=== PATIENT | female | born 1980 | race Caucasian/White ===

== ENCOUNTER 2016-11-04 19:33 | Emergency (ER) | payer OTHER, BC ==
--- NOTE | 2016-11-04 22:26 | ED NURSING NOTES ---
Clinical Report - Nurses [facility] [address] [place] [address] 11/04/2016 19:36 Patient: LA NENA KING TRIAGE Triage time 2008 PM. Acuity: LEVEL 3. Chief Complaint: ABDOMINAL PAIN and NAUSEA. Alert. No acute distress. --20:14 Cynthia Lemos R.N. 20:07 11/04/16. BP: 166/59. HR: 94. RR: 16. O2 saturation: 100%. Temp: 98.5 F. Pain level now: 09/30. --20:14 Cynthia Lemos R.N. Weight: 89.8 kg measured. Height/Length: 63 inches Per Patient. BMI: 35.1. --20:08 Cynthia Lemos R.N. Medications AzaTHIOprine Oral. --20:08 Cynthia Lemos R.N. Medication/allergy information source: the patient. --20:14 Cynthia Lemos R.N. Allergies No Known Drug Allergy. --20:08 Cynthia Lemos R.N. History Arrived by private vehicle. Historian: patient and family. Accompanied by family. Primary physician ([facility] [place] [facility] [place]. Nilesh Knapp). ( PT states that has been feeling abdominal pain for about 4-5 days on right mid section and radiates to the right flank area. Denies any burning sensation upon urination, denies diarrhea, vomiting, fever or chills. Went to [facility] and was sent over for further evaluation). Onset. (4 days). She has had nausea and abdominal pain. No diarrhea or constipation. Last oral intake by patient was lunch today. Treatment MARKETING CONTENT SPECIALIST: None. PAST MEDICAL HX: Immunizations: up-to-date. The patient has had a hysterectomy. 5. Para 3. Sexual history - sexually active. No contraception. SOCIAL HX: Never smoker. No alcohol use or drug use. No recent travel. No infectious disease exposure. No known contact with a sick individual. ABUSE ASSESSMENT: No report of abuse. SELF HARM ASSESSMENT: A self harm assessment was performed. The patient answered "no" to the question "Do you have thoughts of harming or killing yourself?" and "Have you recently had thoughts about harming or killing others?". FALL RISK ASSESSMENT: Fall risk assessment completed. No fall risk identified. NUTRITIONAL RISK ASSESSMENT: The nutritional risk assessment revealed no deficiencies. FUNCTIONAL ASSESSMENT: Functional assessment: no impairments noted. LEARNING NEEDS ASSESSMENT: The learning needs assessment revealed no barriers. SKIN INTEGRITY ASSESSMENT: Skin integrity risk assessment completed. No skin integrity risk identified. --20:14 Cynthia Lemos R.N. PROBLEMS: Anxiety Reaction. Chest Pain of GI Origin. Immunizations. Autoimmune disease. --20:09 Cynthia Lemos R.N. ADDITIONAL SURGERIES: . Hysterectomy. --20:09 Cynthia Lemos R.N. Interventions ID band on patient. --20:14 Cynthia Lemos R.N. PHYSICAL ASSESSMENT Ambulatory to room. GENERAL / NEURO / PSYCH: Alert. Oriented X 4. Appears in pain. HEENT: Mucous membranes are pink. RESPIRATORY: Respirations not labored. Breath sounds within normal limits. CVS: Capillary refill less than 2 seconds. GI / : Abdomen soft and nontender. Bowel sounds within normal limits. SKIN: Skin is warm and dry. --20:14 Cynthia Lemos R.N. NURSING PROGRESS NOTES The initial plan of care for this patient has been created This plan of care was discussed with the patient. Patient gowned. Reassurance given. Two patient identifiers checked. Call light placed in reach. Side rails up. Bed placed in lowest position. Brakes of bed on. --20:17 Cynthia Lemos R.N. 20:25 11/04/2016 Site #1 started via IV in the left antecubital space with an 20g angiocath; one attempt. Blood drawn: rainbow set. Labeled in the presence of the patient and sent to the lab. --20:25 Cynthia Lemos R.N. 22:03 11/04/2016 Started bag #1 1000 mL IV Fluids IV NS (Saline); bolus of 1000 mL over 1 hour(s) then at 1000 mL/hr over 1 hour(s) via site #1 via IV pump. Allergies verified and confirmed 5 rights. IV patency established. IV site checked: no pain, redness, or swelling. IV flushed thoroughly pre- and post-medication administration. --22:03 Lary Carreon R.N. 22:04 11/04/16. ( Warm blanket given to patient). --22:04 Lary Carreon R.N. 22:03 11/04/16. BP: 166/100 (regular adult cuff) taken on the right arm, while sitting. HR: 96. RR: 16. O2 saturation: 100% on room air. Pain level now: 09/30. --22:04 Lary Carreon R.N. 22:18 11/04/2016 Hydrocodone-APAP (Hydrocodone-Acetaminophen) PO 5/325 mg Tablets 2 tab given. Allergies verified, confirmed 5 rights and sedative warning given to the patient. --22:18 Lary Carreon R.N. 22:19 11/04/2016 Ciprofloxacin (Ciprofloxacin) PO Tablets 500 mg given. Allergies verified and confirmed 5 rights. --22:19 Lary Carreon R.N. Care transferred and report received (JOSE M Marie). --22:21 Lary Carreon R.N. DISPOSITION / DISCHARGE 22:39 11/04/2016 IV Fluids IV NS Discontinued: bag #1 upon discharge. Total amount infused: 586 mL. IV patency established. IV site checked: no pain, redness, or swelling. IV flushed thoroughly. --22:39 Lary Carreon R.N. 22:41 11/04/2016 Site #1 removed upon discharge. Bandaid applied. --22:41 Lary Carreon R.N. 22:41 11/04/16. Condition at departure: improved. No learning barriers present. Discharge instructions provided and reviewed with the patient. Reviewed medication(s) side effects, precautions, dosing and course information. Prescription(s) given to the patient. Activity restrictions (rest) reviewed. Patient and spouse verbalized understanding. Written instructions provided in [place]. 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 She was discharged home and accompanied by spouse. She left the Emergency Department ambulatory and via private vehicle. Spouse driving. --22:41 Lary Carreon R.N. 22:37 11/04/16. BP: 163/94 (regular adult cuff) taken on the right arm, while sitting. HR: 92. RR: 18. O2 saturation: 99% on room air. Temp: 99.2 F (oral). Pain level now: 09/30. --22:41 Lary Carreon R.N. Locked/Released at 11/04/2016 22:44 by Lary Carreon R.N.
--- NOTE | 2016-11-04 22:26 | ED ORDER SUMMARY ---
..... Patient: LA NENA KING OrderSheet [facility] VisitID: [id number] [place] [address] 35y, F Registration Date/Time: 11/04/2016 ORDER SHEET Weight: 89.8 kg (measured) Allergies: No Known Drug Allergy GENERAL ORDERS: CBC w Diff Urgent (21:01 11/04/2016 EKoroleva P.A.-C) (Ack 21:04 CHagerty ER Decal Cutter) (21:53 JSanders R.N.) BMP Urgent (21:01 11/04/2016 EKoroleva P.A.-C) (Ack 21:04 CHagerty ER Decal Cutter) (Cancelled: Other21:16 EKoroleva P.A.-C) PT with INR Urgent (21:01 11/04/2016 EKoroleva P.A.-C) (Ack 21:04 CHagerty ER Decal Cutter) (21:53 JSanders R.N.) Lipase Urgent (21:01 11/04/2016 EKoroleva P.A.-C) (Ack 21:04 CHagerty ER Decal Cutter) (21:53 JSanders R.N.) CMP Urgent (21:17 11/04/2016 EKoroleva P.A.-C) (Ack 21:19 CHagerty ER Decal Cutter) (21:53 JSanders R.N.) UA-Culture if indicated Urgent (21:36 11/04/2016 EKoroleva P.A.-C) (Ack 21:45 CHagerty ER Decal Cutter) (21:53 JSanders R.N.) MEDICATION ORDERS: Hydrocodone-APAP PO 10/650 mg (NOW, HIGH ALERT MEDICATION) (22:02 11/04/2016 EKoroleva P.A.-C) (Ack 22:05 JSanders R.N.) (22:18 JSanders R.N.) Ciprofloxacin PO 500 mg (NOW) (22:02 11/04/2016 EKoroleva P.A.-C) (Ack 22:05 JSanders R.N.) (22:19 JSanders R.N.) IV FLUIDS: IV NS : initial bolus 1000 mL (1000 mL/hr), then 1000 mL/hr for X1 (NOW); Joey (21:09 11/04/2016 China Guerrero) (22:03 Selam Zayas) ORDER SHEET NOTES: [Electronically signed by Lary Carreon R.N. (22:44 11/04/2016)] [Electronically signed by Divine Bravo P.A.-C (22:53 11/04/2016)] [Electronically locked/signed by Lary Carreon R.N. (22:44 11/04/2016)]
--- NOTE | 2016-11-04 22:26 | ED ORDER SUMMARY ---
..... Patient: LA NENA KING OrderSheet [facility] VisitID: [id number] [place] [address] 35y, F Registration Date/Time: 11/04/2016 ORDER SHEET Weight: 89.8 kg (measured) Allergies: No Known Drug Allergy GENERAL ORDERS: CBC w Diff Urgent (21:01 11/04/2016 EKoroleva P.A.-C) (Ack 21:04 CHagerty ER Plant Technical Specialist) (21:53 JSanders R.N.) BMP Urgent (21:01 11/04/2016 EKoroleva P.A.-C) (Ack 21:04 CHagerty ER Plant Technical Specialist) (Cancelled: Other21:16 EKoroleva P.A.-C) PT with INR Urgent (21:01 11/04/2016 EKoroleva P.A.-C) (Ack 21:04 CHagerty ER Plant Technical Specialist) (21:53 JSanders R.N.) Lipase Urgent (21:01 11/04/2016 EKoroleva P.A.-C) (Ack 21:04 CHagerty ER Plant Technical Specialist) (21:53 JSanders R.N.) CMP Urgent (21:17 11/04/2016 EKoroleva P.A.-C) (Ack 21:19 CHagerty ER Plant Technical Specialist) (21:53 JSanders R.N.) UA-Culture if indicated Urgent (21:36 11/04/2016 EKoroleva P.A.-C) (Ack 21:45 CHagerty ER Plant Technical Specialist) (21:53 JSanders R.N.) MEDICATION ORDERS: Hydrocodone-APAP PO 10/650 mg (NOW, HIGH ALERT MEDICATION) (22:02 11/04/2016 EKoroleva P.A.-C) (Ack 22:05 JSanders R.N.) (22:18 JSanders R.N.) Ciprofloxacin PO 500 mg (NOW) (22:02 11/04/2016 EKoroleva P.A.-C) (Ack 22:05 JSanders R.N.) (22:19 JSanders R.N.) IV FLUIDS: IV NS : initial bolus 1000 mL (1000 mL/hr), then 1000 mL/hr for X1 (NOW); Joey (21:09 11/04/2016 China Guerrero) (22:03 Selam Zayas) ORDER SHEET NOTES: [Electronically signed by Lary Carreon R.N. (22:44 11/04/2016)] [Electronically signed by Divine Bravo P.A.-C (22:53 11/04/2016)] [Electronically locked/signed by Lary Carreon R.N. (22:44 11/04/2016)]
--- NOTE | 2016-11-04 22:26 | ED CLINICAL REPORT ---
Clinical Report - Physicians/Mid Levels [facility] [address] [place] [address] 11/04/2016 19:36 Patient: LA NENA KING Time Seen: 22:39 Jere 14 2016. Arrived- By private vehicle. Historian- patient. HISTORY OF PRESENT ILLNESS Chief Complaint: ABDOMINAL PAIN. 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 It is described as located in the right flank. The patient has had nausea. No diarrhea. (Patient in the emergency department with abdominal pain, radiating to the right flank. Denies any urgency or frequency. Patient denies any diarrhea. Denies any sick contacts. Denies history of similar pain. Denies melena.). REVIEW OF SYSTEMS No constipation, black stools, difficulty with urination, pain with urination or urinary frequency. No fever, headache, cough or chills. All systems otherwise negative, except as recorded above. PAST HISTORY Problems: Anxiety Reaction. Chest Pain of GI Origin. Immunizations. LNMP - Last Normal Menstrual Period. Autoimmune disease. Additional Surgeries: . Hysterectomy. Medications: AzaTHIOprine Oral. Allergies: No Known Drug Allergy. SOCIAL HISTORY Never smoker. No alcohol use. ADDITIONAL NOTES The nursing notes have been reviewed. PHYSICAL EXAM Vital Signs: 11/04/2016 20:07 BP: 166/59. HR: 94. RR: 16. O2 saturation: 100%. Temp: 98.5 F. Pain level now: 5/10. Appearance: Alert. Eyes: Eyes normal inspection. ENT: Ears normal. Nose normal. Neck: Normal inspection. Neck supple. No lymphadenopathy. CVS: Normal heart rate and rhythm. Heart sounds normal. Respiratory: No respiratory distress. Breath sounds normal. Chest nontender. No rales or rhonchi. Abdomen: Mild tenderness in the periumbilical area. No guarding. Back: Normal inspection. No CVA tenderness. Skin: Skin warm. Neuro: Oriented X 3. No motor deficit. LABS, X-RAYS, AND EKG Laboratory Tests: UA-Culture if indicated: (KATIE: 11/04/2016 20:20) ( MsgRcvd 11/04/2016 22:12) Final results Test Result Flag Units (Reference) URINE COLOR YELLOW URINE APPEARANCE SL CLOUDY URINE GLUCOSE NEGATIVE (NEGATIVE) URINE BILIRUBIN NEGATIVE (NEGATIVE) URINE KETONE TRACE (NEGATIVE) URINE SPECIFIC GRAVITY 1.020 (1.010-1.030) URINE PH 6.5 (5.0-8.0) URINE PROTEIN TRACE (NEGATIVE) URINE UROBILINOGEN 0.2 EU/dL (0.2-1.0) URINE NITRITE POSITIVE (NEGATIVE) URINE BLOOD 2+ (NEGATIVE) URINE LEUK ESTERASE POSITIVE (NEGATIVE) URINE RBC 1-3 rbc/hpf (0-1) URINE WBC 5-10 wbc/hpf (0-1) URINE EPITHELIAL CELLS 1-3 EPI/hpf (0-5) URINE BACTERIA MANY (4+) (NONE SEEN) URINE COMMENT CULTURE INDICATED URINE CULTURES ARE SET-UP BASED ON THE FOLLOWING CRITERIA:POSITIVE NITRITEPOSITIVE LEUKOCYTE ESTERASEGREATER THAN 10 WHITE BLOOD CELLSMODERATE (2+) OR GREATER BACTERIA CBC w Diff: (KATIE: 11/04/2016 20:20) ( [facility] [place] 11/04/2016 21:16) Final results Test Result Flag Units (Reference) WHITE BLOOD COUNT 10.4 K/uL (4.5-11.5) RED BLOOD COUNT 4.48 M/uL (4.00-5.20) HEMOGLOBIN 12.2 gm/dL (12.0-16.0) HEMATOCRIT 37.1 % (36.0-46.0) MEAN CELL VOLUME 83 fL (80-100) MEAN CORPUSCULAR HGB 27 pg (26-34) MEAN CORPUSCULAR HGB CONC 33 g/dL (31-37) RED CELL DISTRIBUTION WIDTH 17.0 H % (11.6-14.8) PLATELET COUNT 288 K/uL (150-400) NEUTROPHIL % 85.7 H % (50-75) LYMPH % 11.2 L % (25-40) MONO % 2.9 L % (3-14) EOSINOPHIL % 0 % (0-4) BASOPHIL % 0.2 % (0-2) PT with INR: (KATIE: 11/04/2016 20:20) ( [facility] [place] 11/04/2016 21:16) Final results Test Result Flag Units (Reference) INR 0.9 (0.8-1.2) Low Intensity Therapy: INR 1.5-2.0 PT range 18.5-23.1Mod.Intensity Therapy: INR 2.0-3.0 PT range 23.1-31.5High Intensity Therapy: INR 2.5-3.5 PT range 27.4-35.5High Intensity Therapy 2: INR 3.0-4.0 PT range 31.5-39.3 CMP: (KATIE: 11/04/2016 20:00) ( MsgRcvd 11/04/2016 21:38) Final results Test Result Flag Units (Reference) GLUCOSE 100 mg/dL (70-110) BUN 14 mg/dL (7-18) CREATININE 0.8 mg/dL (0.6-1.3) Estimated GFR >60 mL/min Estimated GFR- >60 mL/min Note: Persistent reduction over 3 months in eGFR<60 mL/min/1.73 m2 defines CKD. Patients with eGFR values>=60 mL/min/1.73 m2 may also have CKD if evidence ofpersistent proteinuria. Additional information may be foundat www.kidney.org. SODIUM 144 mmol/L (136-145) POTASSIUM 3.5 mmol/L (3.5-5.1) CHLORIDE 107 mmol/L (98-107) CARBON DIOXIDE 27 mmol/L (21-32) CALCIUM 8.9 mg/dL (8.5-10.1) TOTAL PROTEIN 7.6 g/dL (6.4-8.2) ALBUMIN 3.7 g/dL (3.3-5.0) BILIRUBIN, TOTAL 0.7 mg/dL (0.0-1.0) ALKALINE PHOSPHATASE 106 U/L (46-116) AST (SGOT) 23 U/L (15-37) ALT (SGPT) 34 U/L (12-78) BMP: (KATIE: 11/04/2016 20:20) ( MsgRcvd 11/04/2016 21:17) Final results Test Result Flag Units (Reference) GLUCOSE 101 mg/dL (70-110) BUN 14 mg/dL (7-18) CREATININE 0.8 mg/dL (0.6-1.3) Estimated GFR >60 mL/min Estimated GFR- >60 mL/min Note: Persistent reduction over 3 months in eGFR<60 mL/min/1.73 m2 defines CKD. Patients with eGFR values>=60 mL/min/1.73 m2 may also have CKD if evidence ofpersistent proteinuria. Additional information may be foundat www.kidney.org. SODIUM 143 mmol/L (136-145) POTASSIUM 3.4 L mmol/L (3.5-5.1) CHLORIDE 107 mmol/L (98-107) CARBON DIOXIDE 28 mmol/L (21-32) CALCIUM 8.9 mg/dL (8.5-10.1) LIPASE 218 U/L (73-393) . PROGRESS AND PROCEDURES Course of Care: Patient with urinalysis of positive ua, +WBC positive nitrate, positive leukocyte esterase, but otherwise unremarkable CBC. Patient with no signs of sepsis. abdomen is soft no guarding, no peritoneal signs. Patient started on antibiotics, as well as pain management in the emergency department stable for outpatient management. 11/04/2016 22:37 BP: 163/94. HR: 92. RR: 18. O2 saturation: 99%. Temp: 99.2 F. Pain level now: 5/10. Patient is stable. Symptoms better. Patient/family counseled. Disposition: Discharged. Condition: good. CLINICAL IMPRESSION Acute pyelonephritis INSTRUCTIONS Alternate Tylenol (Acetaminophen) or Motrin (Ibuprofen) for fever control. Take according to label instructions. Drink plenty of fluids. Prescription Medications: Hydrocodone/APAP 5mg / 325mg: take 1 orally every 6 hours as needed for pain. Dispense ten (10). One refill. Zofran (orally disintegrating tablets) 4 mg: take 1 orally every 6 hours for 3 days as needed for nausea. No refill. Cipro 500 mg: take 1 tab orally every 12 hours for 10 days. No refills. Substitution is permissible. Follow-up: Follow up with your doctor in two days as needed. Understanding of the discharge instructions verbalized. (Electronically signed by Divine Bravo P.ABarney-Seth 11/04/2016 22:53)
--- NOTE | 2016-11-04 22:26 | ED CLINICAL REPORT ---
Clinical Report - Physicians/Mid Levels [facility] [address] [place] [place] [address] 11/04/2016 19:36 Patient: LA NENA KING Time Seen: 22:39 Jere 14 2016. Arrived- By private vehicle. Historian- patient. HISTORY OF PRESENT ILLNESS Chief Complaint: ABDOMINAL PAIN. 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 It is described as located in the right flank. The patient has had nausea. No diarrhea. (Patient in the emergency department with abdominal pain, radiating to the right flank. Denies any urgency or frequency. Patient denies any diarrhea. Denies any sick contacts. Denies history of similar pain. Denies melena.). REVIEW OF SYSTEMS No constipation, black stools, difficulty with urination, pain with urination or urinary frequency. No fever, headache, cough or chills. All systems otherwise negative, except as recorded above. PAST HISTORY Problems: Anxiety Reaction. Chest Pain of GI Origin. Immunizations. LNMP - Last Normal Menstrual Period. Autoimmune disease. Additional Surgeries: . Hysterectomy. Medications: AzaTHIOprine Oral. Allergies: No Known Drug Allergy. SOCIAL HISTORY Never smoker. No alcohol use. ADDITIONAL NOTES The nursing notes have been reviewed. PHYSICAL EXAM Vital Signs: 11/04/2016 20:07 BP: 166/59. HR: 94. RR: 16. O2 saturation: 100%. Temp: 98.5 F. Pain level now: 5/10. Appearance: Alert. Eyes: Eyes normal inspection. ENT: Ears normal. Nose normal. Neck: Normal inspection. Neck supple. No lymphadenopathy. CVS: Normal heart rate and rhythm. Heart sounds normal. Respiratory: No respiratory distress. Breath sounds normal. Chest nontender. No rales or rhonchi. Abdomen: Mild tenderness in the periumbilical area. No guarding. Back: Normal inspection. No CVA tenderness. Skin: Skin warm. Neuro: Oriented X 3. No motor deficit. LABS, X-RAYS, AND EKG Laboratory Tests: UA-Culture if indicated: (KATIE: 11/04/2016 20:20) ( MsgRcvd 11/04/2016 22:12) Final results Test Result Flag Units (Reference) URINE COLOR YELLOW URINE APPEARANCE SL CLOUDY URINE GLUCOSE NEGATIVE (NEGATIVE) URINE BILIRUBIN NEGATIVE (NEGATIVE) URINE KETONE TRACE (NEGATIVE) URINE SPECIFIC GRAVITY 1.020 (1.010-1.030) URINE PH 6.5 (5.0-8.0) URINE PROTEIN TRACE (NEGATIVE) URINE UROBILINOGEN 0.2 EU/dL (0.2-1.0) URINE NITRITE POSITIVE (NEGATIVE) URINE BLOOD 2+ (NEGATIVE) URINE LEUK ESTERASE POSITIVE (NEGATIVE) URINE RBC 1-3 rbc/hpf (0-1) URINE WBC 5-10 wbc/hpf (0-1) URINE EPITHELIAL CELLS 1-3 EPI/hpf (0-5) URINE BACTERIA MANY (4+) (NONE SEEN) URINE COMMENT CULTURE INDICATED URINE CULTURES ARE SET-UP BASED ON THE FOLLOWING CRITERIA:POSITIVE NITRITEPOSITIVE LEUKOCYTE ESTERASEGREATER THAN 10 WHITE BLOOD CELLSMODERATE (2+) OR GREATER BACTERIA CBC w Diff: (KATIE: 11/04/2016 20:20) ( [facility] 11/04/2016 21:16) Final results Test Result Flag Units (Reference) WHITE BLOOD COUNT 10.4 K/uL (4.5-11.5) RED BLOOD COUNT 4.48 M/uL (4.00-5.20) HEMOGLOBIN 12.2 gm/dL (12.0-16.0) HEMATOCRIT 37.1 % (36.0-46.0) MEAN CELL VOLUME 83 fL (80-100) MEAN CORPUSCULAR HGB 27 pg (26-34) MEAN CORPUSCULAR HGB CONC 33 g/dL (31-37) RED CELL DISTRIBUTION WIDTH 17.0 H % (11.6-14.8) PLATELET COUNT 288 K/uL (150-400) NEUTROPHIL % 85.7 H % (50-75) LYMPH % 11.2 L % (25-40) MONO % 2.9 L % (3-14) EOSINOPHIL % 0 % (0-4) BASOPHIL % 0.2 % (0-2) PT with INR: (KATIE: 11/04/2016 20:20) ( [facility] 11/04/2016 21:16) Final results Test Result Flag Units (Reference) INR 0.9 (0.8-1.2) Low Intensity Therapy: INR 1.5-2.0 PT range 18.5-23.1Mod.Intensity Therapy: INR 2.0-3.0 PT range 23.1-31.5High Intensity Therapy: INR 2.5-3.5 PT range 27.4-35.5High Intensity Therapy 2: INR 3.0-4.0 PT range 31.5-39.3 CMP: (KATIE: 11/04/2016 20:00) ( MsgRcvd 11/04/2016 21:38) Final results Test Result Flag Units (Reference) GLUCOSE 100 mg/dL (70-110) BUN 14 mg/dL (7-18) CREATININE 0.8 mg/dL (0.6-1.3) Estimated GFR >60 mL/min Estimated GFR- >60 mL/min Note: Persistent reduction over 3 months in eGFR<60 mL/min/1.73 m2 defines CKD. Patients with eGFR values>=60 mL/min/1.73 m2 may also have CKD if evidence ofpersistent proteinuria. Additional information may be foundat www.kidney.org. SODIUM 144 mmol/L (136-145) POTASSIUM 3.5 mmol/L (3.5-5.1) CHLORIDE 107 mmol/L (98-107) CARBON DIOXIDE 27 mmol/L (21-32) CALCIUM 8.9 mg/dL (8.5-10.1) TOTAL PROTEIN 7.6 g/dL (6.4-8.2) ALBUMIN 3.7 g/dL (3.3-5.0) BILIRUBIN, TOTAL 0.7 mg/dL (0.0-1.0) ALKALINE PHOSPHATASE 106 U/L (46-116) AST (SGOT) 23 U/L (15-37) ALT (SGPT) 34 U/L (12-78) BMP: (KATIE: 11/04/2016 20:20) ( MsgRcvd 11/04/2016 21:17) Final results Test Result Flag Units (Reference) GLUCOSE 101 mg/dL (70-110) BUN 14 mg/dL (7-18) CREATININE 0.8 mg/dL (0.6-1.3) Estimated GFR >60 mL/min Estimated GFR- >60 mL/min Note: Persistent reduction over 3 months in eGFR<60 mL/min/1.73 m2 defines CKD. Patients with eGFR values>=60 mL/min/1.73 m2 may also have CKD if evidence ofpersistent proteinuria. Additional information may be foundat www.kidney.org. SODIUM 143 mmol/L (136-145) POTASSIUM 3.4 L mmol/L (3.5-5.1) CHLORIDE 107 mmol/L (98-107) CARBON DIOXIDE 28 mmol/L (21-32) CALCIUM 8.9 mg/dL (8.5-10.1) LIPASE 218 U/L (73-393) . PROGRESS AND PROCEDURES Course of Care: Patient with urinalysis of positive ua, +WBC positive nitrate, positive leukocyte esterase, but otherwise unremarkable CBC. Patient with no signs of sepsis. abdomen is soft no guarding, no peritoneal signs. Patient started on antibiotics, as well as pain management in the emergency department stable for outpatient management. 11/04/2016 22:37 BP: 163/94. HR: 92. RR: 18. O2 saturation: 99%. Temp: 99.2 F. Pain level now: 5/10. Patient is stable. Symptoms better. Patient/family counseled. Disposition: Discharged. Condition: good. CLINICAL IMPRESSION Acute pyelonephritis INSTRUCTIONS Alternate Tylenol (Acetaminophen) or Motrin (Ibuprofen) for fever control. Take according to label instructions. Drink plenty of fluids. Prescription Medications: Hydrocodone/APAP 5mg / 325mg: take 1 orally every 6 hours as needed for pain. Dispense ten (10). One refill. Zofran (orally disintegrating tablets) 4 mg: take 1 orally every 6 hours for 3 days as needed for nausea. No refill. Cipro 500 mg: take 1 tab orally every 12 hours for 10 days. No refills. Substitution is permissible. Follow-up: Follow up with your doctor in two days as needed. Understanding of the discharge instructions verbalized. (Electronically signed by Divine Bravo P.ABarney-Seth 11/04/2016 22:53)
--- NOTE | 2016-11-04 22:26 | ED NURSING NOTES ---
Clinical Report - Nurses [facility] [address] [place] [address] 11/04/2016 19:36 Patient: LA NENA KING TRIAGE Triage time 2008 PM. Acuity: LEVEL 3. Chief Complaint: ABDOMINAL PAIN and NAUSEA. Alert. No acute distress. --20:14 Cynthia Lemos R.N. 20:07 11/04/16. BP: 166/59. HR: 94. RR: 16. O2 saturation: 100%. Temp: 98.5 F. Pain level now: 09/30. --20:14 Cynthia Lemos R.N. Weight: 89.8 kg measured. Height/Length: 63 inches Per Patient. BMI: 35.1. --20:08 Cynthia Lemos R.N. Medications AzaTHIOprine Oral. --20:08 Cynthia Lemos R.N. Medication/allergy information source: the patient. --20:14 Cynthia Lemos R.N. Allergies No Known Drug Allergy. --20:08 Cynthia Lemos R.N. History Arrived by private vehicle. Historian: patient and family. Accompanied by family. Primary physician ([facility] in [facility] Dr. Nilesh Knapp). ( PT states that has been feeling abdominal pain for about 4-5 days on right mid section and radiates to the right flank area. Denies any burning sensation upon urination, denies diarrhea, vomiting, fever or chills. Went to [facility] and was sent over for further evaluation). Onset. (4 days). She has had nausea and abdominal pain. No diarrhea or constipation. Last oral intake by patient was lunch today. Treatment CITY COLLECTOR: None. PAST MEDICAL HX: Immunizations: up-to-date. The patient has had a hysterectomy. 5. Para 3. Sexual history - sexually active. No contraception. SOCIAL HX: Never smoker. No alcohol use or drug use. No recent travel. No infectious disease exposure. No known contact with a sick individual. ABUSE ASSESSMENT: No report of abuse. SELF HARM ASSESSMENT: A self harm assessment was performed. The patient answered "no" to the question "Do you have thoughts of harming or killing yourself?" and "Have you recently had thoughts about harming or killing others?". FALL RISK ASSESSMENT: Fall risk assessment completed. No fall risk identified. NUTRITIONAL RISK ASSESSMENT: The nutritional risk assessment revealed no deficiencies. FUNCTIONAL ASSESSMENT: Functional assessment: no impairments noted. LEARNING NEEDS ASSESSMENT: The learning needs assessment revealed no barriers. SKIN INTEGRITY ASSESSMENT: Skin integrity risk assessment completed. No skin integrity risk identified. --20:14 Cynthia Lemos R.N. PROBLEMS: Anxiety Reaction. Chest Pain of GI Origin. Immunizations. Autoimmune disease. --20:09 Cynthia Lemos R.N. ADDITIONAL SURGERIES: . Hysterectomy. --20:09 Cynthia Lemos R.N. Interventions ID band on patient. --20:14 Cynthia Lemos R.N. PHYSICAL ASSESSMENT Ambulatory to room. GENERAL / NEURO / PSYCH: Alert. Oriented X 4. Appears in pain. HEENT: Mucous membranes are pink. RESPIRATORY: Respirations not labored. Breath sounds within normal limits. CVS: Capillary refill less than 2 seconds. GI / : Abdomen soft and nontender. Bowel sounds within normal limits. SKIN: Skin is warm and dry. --20:14 Cynthia Lemos R.N. NURSING PROGRESS NOTES The initial plan of care for this patient has been created This plan of care was discussed with the patient. Patient gowned. Reassurance given. Two patient identifiers checked. Call light placed in reach. Side rails up. Bed placed in lowest position. Brakes of bed on. --20:17 Cynthia Lemos R.N. 20:25 11/04/2016 Site #1 started via IV in the left antecubital space with an 20g angiocath; one attempt. Blood drawn: rainbow set. Labeled in the presence of the patient and sent to the lab. --20:25 Cynthia Lemos R.N. 22:03 11/04/2016 Started bag #1 1000 mL IV Fluids IV NS (Saline); bolus of 1000 mL over 1 hour(s) then at 1000 mL/hr over 1 hour(s) via site #1 via IV pump. Allergies verified and confirmed 5 rights. IV patency established. IV site checked: no pain, redness, or swelling. IV flushed thoroughly pre- and post-medication administration. --22:03 Lary Carreon R.N. 22:04 11/04/16. ( Warm blanket given to patient). --22:04 Lary Carreon R.N. 22:03 11/04/16. BP: 166/100 (regular adult cuff) taken on the right arm, while sitting. HR: 96. RR: 16. O2 saturation: 100% on room air. Pain level now: 09/30. --22:04 Lary Carreon R.N. 22:18 11/04/2016 Hydrocodone-APAP (Hydrocodone-Acetaminophen) PO 5/325 mg Tablets 2 tab given. Allergies verified, confirmed 5 rights and sedative warning given to the patient. --22:18 Lary Carreon R.N. 22:19 11/04/2016 Ciprofloxacin (Ciprofloxacin) PO Tablets 500 mg given. Allergies verified and confirmed 5 rights. --22:19 Lary Carreon R.N. Care transferred and report received (JOSE M Marie). --22:21 Lary Carreon R.N. DISPOSITION / DISCHARGE 22:39 11/04/2016 IV Fluids IV NS Discontinued: bag #1 upon discharge. Total amount infused: 586 mL. IV patency established. IV site checked: no pain, redness, or swelling. IV flushed thoroughly. --22:39 Lary Carreon R.N. 22:41 11/04/2016 Site #1 removed upon discharge. Bandaid applied. --22:41 Lary Carreon R.N. 22:41 11/04/16. Condition at departure: improved. No learning barriers present. Discharge instructions provided and reviewed with the patient. Reviewed medication(s) side effects, precautions, dosing and course information. Prescription(s) given to the patient. Activity restrictions (rest) reviewed. Patient and spouse verbalized understanding. Written instructions provided in [place]. The patient was discharged by the physician customer service assistant. She was discharged home and accompanied by spouse. She left the Emergency Department ambulatory and via private vehicle. Spouse driving. --22:41 Lary Carreon R.N. 22:37 11/04/16. BP: 163/94 (regular adult cuff) taken on the right arm, while sitting. HR: 92. RR: 18. O2 saturation: 99% on room air. Temp: 99.2 F (oral). Pain level now: 09/30. --22:41 Lary Carreon R.N. Locked/Released at 11/04/2016 22:44 by Lary Carreon R.N.
--- NOTE | 2016-11-04 22:54 | ED MED RECONCILIATION SUMMARY ---
Patient: LA NENA KING Medication Reconciliation Report [facility] VisitID: [id number] [place] [address] 35y, F Registration Date/Time: 11/04/2016 Weight: 89.8 kg Height/Length: 63 in. BMI: 35.1 ALLERGIES: No Known Drug Allergy The patient's Home Medications are listed below: THE FOLLOWING MEDICATIONS NEED TO BE RECONCILED: AzaTHIOprine Oral The source(s) of the original Home Medication information: patient The following Medications were given to the patient in the Emergency Department: IV NS IV Fluids bolus 1000 mL over 1 hour(s), then 1000 mL/hr, administered: 11/04/2016 10:03:00 PM Hydrocodone-APAP [PO] PO 2 tab, administered: 11/04/2016 10:18:00 PM Ciprofloxacin [PO] PO 500 mg, administered: 11/04/2016 10:19:00 PM The following Medications were prescribed to the patient: Hydrocodone/APAP 5mg / 325mg: take 1 orally every 6 hours as needed for pain. Dispense ten (10). One refill. -- Divine Bravo, P.A.-C Zofran (orally disintegrating tablets) 4 mg: take 1 orally every 6 hours for 3 days as needed for nausea. No refill. -- Divine Bravo, P.A.-C Cipro 500 mg: take 1 tab orally every 12 hours for 10 days. No refills. Substitution is permissible. -- Divine Bravo, P.A.-C
--- NOTE | 2016-11-04 22:54 | ED MAR SUMMARY ---
..... Medication Administration Record [facility] [address] [place] [address] Patient: LA NENA KING Visit ID: [id number] 35y, F Weight: 89.8 kg Height/Length: 63 in BMI: 35.1 ALLERGIES: No Known Drug Allergy Start 22:03 11/04/2016 Lary Carreon R.N., Stop 22:39 11/04/2016 Lary Carreon R.N. Medication Administered: IV NS (SALINE), Dose: IV Fluids over 1 hour(s), Rate: 1000 mL/hr, Bolus: 1000 mL over 1 hour(s), Dispensed: 1000 mL bag, Site: #1 left . Medication Ordered: IV NS : initial bolus 1000 mL (1000 mL/hr), then 1000 mL/hr for X1 (NOW); Joey. Given 22:18 11/04/2016 Lary Carreon R.N. Medication Administered: HYDROCODONE-APAP [PO] (HYDROCODONE-ACETAMINOPHEN), Dose: 2 tab 5/325 mg Tablets PO. Medication Ordered: Hydrocodone-APAP PO 10/650 mg (NOW, HIGH ALERT MEDICATION). Given 22:19 11/04/2016 Lary Carreon R.N. Medication Administered: CIPROFLOXACIN [PO] (CIPROFLOXACIN), Dose: 500 mg Tablets PO. Medication Ordered: Ciprofloxacin PO 500 mg (NOW).
--- NOTE | 2016-11-04 22:54 | ED MAR SUMMARY ---
..... Medication Administration Record [facility] [address] [place] [address] Patient: LA NENA KING Visit ID: [id number] 35y, F Weight: 89.8 kg Height/Length: 63 in BMI: 35.1 ALLERGIES: No Known Drug Allergy Start 22:03 11/04/2016 Lary Carreon R.N., Stop 22:39 11/04/2016 Lary Carreon R.N. Medication Administered: IV NS (SALINE), Dose: IV Fluids over 1 hour(s), Rate: 1000 mL/hr, Bolus: 1000 mL over 1 hour(s), Dispensed: 1000 mL bag, Site: #1 left . Medication Ordered: IV NS : initial bolus 1000 mL (1000 mL/hr), then 1000 mL/hr for X1 (NOW); Joey. Given 22:18 11/04/2016 Lary Carreon R.N. Medication Administered: HYDROCODONE-APAP [PO] (HYDROCODONE-ACETAMINOPHEN), Dose: 2 tab 5/325 mg Tablets PO. Medication Ordered: Hydrocodone-APAP PO 10/650 mg (NOW, HIGH ALERT MEDICATION). Given 22:19 11/04/2016 Lary Carreon R.N. Medication Administered: CIPROFLOXACIN [PO] (CIPROFLOXACIN), Dose: 500 mg Tablets PO. Medication Ordered: Ciprofloxacin PO 500 mg (NOW).
--- NOTE | 2016-11-04 22:54 | ED DISCHARGE INSTRUCTIONS ---
Patient: LA NENA KING General Instructions [facility] VisitID: [id number] [place] [address] 35y, F Registration Date/Time: 11/04/2016 Acute pyelonephritis INSTRUCTIONS Alternate Tylenol (Acetaminophen) or Motrin (Ibuprofen) for fever control. Take according to label instructions. Drink plenty of fluids. Prescription Medications: Hydrocodone/APAP 5mg / 325mg: take 1 orally every 6 hours as needed for pain. Dispense ten (10). One refill. Zofran (orally disintegrating tablets) 4 mg: take 1 orally every 6 hours for 3 days as needed for nausea. No refill. Cipro 500 mg: take 1 tab orally every 12 hours for 10 days. No refills. Substitution is permissible. Follow-up: Follow up with your doctor in two days as needed. Understanding of the discharge instructions verbalized. ADDITIONAL INFORMATION Kidney Infection [Adult, Female] An infection of the kidney is also called "pyelonephritis". It usually starts as a bladder infection ("cystitis") which spreads to the kidneys. Pyelonephritis is more serious than a bladder infection. It can cause severe illness if not treated properly. The usual symptoms include an aching pain in the back, side or lower abdomen. Other symptoms may include fever, chills, nausea, vomiting, an urge to urinate and a burning sensation when passing urine. Home Care: Stay home from work or school. Rest in bed until your fever breaks and you are feeling better. Drink lots of fluid (at least 6-8 glasses a day, unless you must restrict fluids for other medical reasons). This will force the medicine into your urinary system and flush the bacteria out of your body. Avoid sexual intercourse until you have finished all of your medicine and your symptoms have gone away. Avoid caffeine, alcohol and spicy foods which may irritate the kidney and bladder. You may use acetaminophen (Tylenol) or ibuprofen (Motrin, Advil) to control pain, unless another pain medicine was prescribed. [NOTE: If you have chronic liver or kidney disease or ever had a stomach ulcer or GI bleeding, talk with your doctor before using these medicines.] Follow Up with your doctor or as advised by our staff for a repeat urine test in 10 days. This will ensure that your infection is fully cleared. [NOTE: If you had an X-ray or CT scan, it will be reviewed by a specialist. You will be notified of any new findings that may affect your care.] Get Prompt Medical Attention if any of the following occur: Fever over 100.4F (38.0C) after 48 hours of treatment No improvement by the third day of treatment Increasing back or abdominal pain Repeated vomiting or inability to take oral medicine Weakness, dizziness or fainting Fever Control (Adult) A fever is a natural reaction of the body to an illness. In most cases, the temperature itself is not harmful. It actually helps the body fight infections. A fever does not need to be treated unless you feel very uncomfortable. Home Care If you feel warm, check your temperature. If you feel very uncomfortable and your temperature is at or higher than 100.4F (38C) oral, you may take acetaminophen (Tylenol) every 4 to 6 hours. If you cant take or keep down oral medicine, ask your pharmacist for Tylenol suppositories, which you can get without a prescription. If the fever does not respond to acetaminophen within 1 hour, take ibuprofen (Advil or Motrin). If this works, keep taking the ibuprofen every 6 to 8 hours. Note: If you have chronic liver or kidney disease or ever had a stomach ulcer or GI bleeding, talk with your doctor before using these medications. If either medication alone does not keep the fever down, you may alternate the two medicines every 3 to 4 hours, only if your healthcare provider has instructed you to do so. For example, take Motrin then wait 3 hours, take Tylenol then wait 3 hours, take Motrin, and so on. Follow your healthcare providers instructions exactly. Clothing: Keep clothing light because excess body heat is lost through the skin. The fever will go up if you wear extra layers or wrap in blankets. Fluids: Fever causes the body to lose water through evaporation. Drink plenty of fluids such as water, juice, clear sodas, joaquín kylah, or lemonade. Do not use aspirin in anyone under 18 years of age who is ill with a fever. It can cause severe liver damage. Follow Up with your doctor or as advised by our staff if you do not get better after 48 hours. Get Prompt Medical Attention if any of the following occur: Fever does not get better after taking fever medication Fast or difficult breathing Earache, sinus pain, stiff or painful neck, headache, repeated diarrhea or vomiting You feel unusually irritable, drowsy, or confused A rash appears You feel weak or dizzy, or that you might faint Ondansetron Oral disintegrating tablet What is this medicine? ONDANSETRON (on RAVINDER se jarvis) is used to treat nausea and vomiting caused by chemotherapy. It is also used to prevent or treat nausea and vomiting after surgery. How should I use this medicine? These tablets are made to dissolve in the mouth. Do not try to push the tablet through the foil backing. With dry hands, peel away the foil backing and gently remove the tablet. Place the tablet in the mouth and allow it to dissolve, then swallow. While you may take these tablets with water, it is not necessary to do so. Talk to your foundry tender regarding the use of this medicine in children. Special care may be needed. What side effects may I notice from receiving this medicine? Side effects that you should report to your doctor or health healthcare administration internship as soon as possible: allergic reactions like skin rash, itching or hives, swelling of the face, lips, or tongue breathing problems dizziness fast or irregular heartbeat feeling faint or lightheaded, falls fever and chills swelling of the hands and feet tightness in the chest Side effects that usually do not require medical attention (report to your doctor or health healthcare administration internship if they continue or are bothersome): constipation or diarrhea headache What may interact with this medicine? Do not take this medicine with any of the following medications: -apomorphine -cisapride -dofetilide -dronedarone -pimozide -thioridazine -ziprasidone This medicine may also interact with the following medications: -carbamazepine -phenytoin -rifampicin -tramadol -other medicines that prolong the QT interval (cause an abnormal heart rhythm) What if I miss a dose? If you miss a dose, take it as soon as you can. If it is almost time for your next dose, take only that dose. Do not take double or extra doses. Where should I keep my medicine? Keep out of the reach of children. Store between 2 and 30 degrees C (36 and 86 degrees F). Throw away any unused medicine after the expiration date. What should I tell my health care provider before I take this medicine? They need to know if you have any of these conditions: heart disease history of irregular heartbeat liver disease low levels of magnesium or potassium in the blood an unusual or allergic reaction to ondansetron, granisetron, other medicines, foods, dyes, or preservatives or trying to get breast-feeding What should I watch for while using this medicine? Check with your doctor or health healthcare administration internship as soon as you can if you have any sign of an allergic reaction. Ciprofloxacin Hydrochloride Oral tablet What is this medicine? CIPROFLOXACIN (sip юлия FLOX a sin) is a quinolone antibiotic. It is used to treat certain kinds of bacterial infections. It will not work for colds, flu, or other viral infections. How should I use this medicine? Take this medicine by mouth with a glass of water. Follow the directions on the prescription label. Take your medicine at regular intervals. Do not take your medicine more often than directed. Take all of your medicine as directed even if you think your are better. Do not skip doses or stop your medicine early. You can take this medicine with food or on an empty stomach. It can be taken with a meal that contains dairy or calcium, but do not take it alone with a dairy product, like milk or yogurt or calcium-fortified juice. A special MedGuide will be given to you by the pharmacist with each prescription and refill. Be sure to read this information carefully each time. Talk to your foundry tender regarding the use of this medicine in children. Special care may be needed. What side effects may I notice from receiving this medicine? Side effects that you should report to your doctor or health healthcare administration internship as soon as possible: - allergic reactions like skin rash, itching or hives, swelling of the face, lips, or tongue - breathing problems - confusion, nightmares or hallucinations - feeling faint or lightheaded, falls - irregular heartbeat - joint, muscle or tendon pain or swelling - pain or trouble passing urine -persistent headache with or without blurred vision - redness, blistering, peeling or loosening of the skin, including inside the mouth - seizure - unusual pain, numbness, tingling, or weakness Side effects that usually do not require medical attention (report to your doctor or health healthcare administration internship if they continue or are bothersome): - diarrhea - nausea or stomach upset - white patches or sores in the mouth What may interact with this medicine? Do not take this medicine with any of the following medications: cisapride droperidol terfenadine tizanidine This medicine may also interact with the following medications: antacids caffeine cyclosporin didanosine (ddI) buffered tablets or powder medicines for diabetes medicines for inflammation like ibuprofen, naproxen methotrexate multivitamins omeprazole phenytoin probenecid sucralfate theophylline warfarin What if I miss a dose? If you miss a dose, take it as soon as you can. If it is almost time for your next dose, take only that dose. Do not take double or extra doses. Where should I keep my medicine? Keep out of the reach of children. Store at room temperature below 30 degrees C (86 degrees F). Keep container tightly closed. Throw away any unused medicine after the expiration date. What should I tell my health care provider before I take this medicine? They need to know if you have any of these conditions: -bone problems -cerebral disease -joint problems -irregular heartbeat -kidney disease -liver disease -myasthenia gravis -seizure disorder -tendon problems -an unusual or allergic reaction to ciprofloxacin, other antibiotics or medicines, foods, dyes, or preservatives - or trying to get -breast-feeding What should I watch for while using this medicine? Tell your doctor or health healthcare administration internship if your symptoms do not improve. Do not treat diarrhea with over the counter products. Contact your doctor if you have diarrhea that lasts more than 2 days or if it is severe and watery. You may get drowsy or dizzy. Do not drive, use machinery, or do anything that needs mental alertness until you know how this medicine affects you. Do not stand or sit up quickly, especially if you are an older patient. This reduces the risk of dizzy or fainting spells. This medicine can make you more sensitive to the sun. Keep out of the sun. If you cannot avoid being in the sun, wear protective clothing and use sunscreen. Do not use sun lamps or tanning beds/booths. Avoid antacids, aluminum, calcium, iron, magnesium, and zinc products for 6 hours before and 2 hours after taking a dose of this medicine. You have been given the following additional information: Pyelonephritis, Female (Adult) Fever Control (Adult) Ondansetron Oral disintegrating tablet Ciprofloxacin Hydrochloride Oral tablet (Electronically signed by Divine Bravo P.A.-C 11/04/2016 22:53)
--- NOTE | 2016-11-04 22:54 | ED MED RECONCILIATION SUMMARY ---
Patient: LA NENA KING Medication Reconciliation Report [facility] VisitID: [id number] [place] [address] 35y, F Registration Date/Time: 11/04/2016 Weight: 89.8 kg Height/Length: 63 in. BMI: 35.1 ALLERGIES: No Known Drug Allergy The patient's Home Medications are listed below: THE FOLLOWING MEDICATIONS NEED TO BE RECONCILED: AzaTHIOprine Oral The source(s) of the original Home Medication information: patient The following Medications were given to the patient in the Emergency Department: IV NS IV Fluids bolus 1000 mL over 1 hour(s), then 1000 mL/hr, administered: 11/04/2016 10:03:00 PM Hydrocodone-APAP [PO] PO 2 tab, administered: 11/04/2016 10:18:00 PM Ciprofloxacin [PO] PO 500 mg, administered: 11/04/2016 10:19:00 PM The following Medications were prescribed to the patient: Hydrocodone/APAP 5mg / 325mg: take 1 orally every 6 hours as needed for pain. Dispense ten (10). One refill. -- Divine Bravo, P.A.-C Zofran (orally disintegrating tablets) 4 mg: take 1 orally every 6 hours for 3 days as needed for nausea. No refill. -- Divine Bravo, P.A.-C Cipro 500 mg: take 1 tab orally every 12 hours for 10 days. No refills. Substitution is permissible. -- Divine Bravo, P.A.-C
== END 2016-11-04 22:44 | disposition home or self-care (01) ==
LOC: ED SRH 19:33
DX: N10 Acute pyelonephritis (principal); Z79.899 Other long term (current) drug therapy
CPT/HCPCS: 90004; 90047; 90100; 90148; 90469; 92235; 94060; 95059